=== PATIENT | female | born 1930 | race Caucasian/White ===

== ENCOUNTER 2017-02-18 14:30 | Day surgery (SDC) | payer MEDICARE ==
[~2017-02-18 14:30] MED LIST: ASPIRIN EC81 MG PO; CILOSTAZOL100 M1 PO; MULTI VITAMIN1 EAC2 PO; SUDAFED 24-HOU240 M1 PO; SYNTHROID75 MC1 PO; TIMOPTIC5 ML OP
[2017-02-18 15:28] LABS: BASO % 1.1 % (0-2); BASO ABSOLUTE COUNT 0.1 tho/cmm (0.0-0.2); EOS % 2.3 % (0-7); EOSINOPHIL ABSOLUTE COUNT 0.1 tho/cmm (0.0-0.7); HCT-HEMATOCRIT 37.7 % (34.0-49.0); HGB-HEMOGLOBIN 12.7 gm/dl (12.0-15.5); IMMATURE GRANULOCYTES ABSOLUTE 0.03 tho/cmm (0-0.03); IMMATURE GRANULOCYTES PERCENT 0.6 % (0-0.3); LYMPH % 28.8 % (20-45); LYMPH ABSOLUTE COUNT 1.5 tho/cmm (0.8-4.5); MCH (MEAN CORPUSCULAR HGB) 30.8 pg (28.0-32.0); MCHC MEAN CORPUSCULAR HGB CONC 33.7 % (32.0-36.0); MCV (MEAN CELL VOLUME) 91.5 fl (82.0-96.0); MEAN PLATELET VOLUME 9.4 cmc (9.4-12.4); MONO % 10.2 % (0-12); MONOCYTE ABSOLUTE COUNT 0.5 tho/cmm (0.0-1.2); PLATELET COUNT 379 tho/cmm (150-450); RED BLOOD COUNT 4.12 mil/cmm (4.00-5.20); RED CELL DISTRIBUTION WIDTH 14.6 % (12.4-16.4); WHITE BLOOD COUNT 5.3 tho/cmm (4.0-10.0)
[2017-02-18 15:33] LABS: PROTHROMBIN TIME 11.2 SECONDS (9.0-13.6)
[2017-02-18 15:40] LABS: ANION GAP 15 mmol/L (0-20); BLOOD UREA NITROGEN 17 mg/dl (6-24); CARBON DIOXIDE-VENOUS 26 mmol/L (22-32); CHLORIDE 104 mmol/l (96-110); CREATININE 0.87 mg/dl (0.50-1.10); GLUCOSE 90 mg/dL (70-110); POTASSIUM 4.1 mmol/L (3.7-5.1); SODIUM 141 mmol/L (135-145); eGFR VALUE FOR BLACK 70 mL/Min
== END 2017-02-18 19:30 ==
LOC: SHSB 14:30
PROVIDERS: Surgery Vascular Surgery
PROC: B41DYZZ Fluoroscopy of Aorta and Bilateral Lower Extremity Arteries using Other Contrast (ICD-10-PCS; principal; 2017-02-18)
DX: I74.3 Embolism and thrombosis of arteries of the lower extremities (principal); I73.9 Peripheral vascular disease, unspecified; S81.811D Laceration without foreign body, right lower leg, subsequent encounter; Z79.899 Other long term (current) drug therapy; Z79.82 Long term (current) use of aspirin
CPT/HCPCS: C1760; C1769; J2250; J7030; Q9967

== ENCOUNTER 2017-02-22 05:31 | Inpatient (IN) | payer MEDICARE ==
[2017-02-23 05:37] LABS: ANION GAP 13 mmol/L (0-20); BLOOD UREA NITROGEN 16 mg/dl (6-24); CALCIUM 8.1 mg/dl (8.5-10.5); CARBON DIOXIDE-VENOUS 25 mmol/L (22-32); CHLORIDE 109 mmol/l (96-110); CREATININE 0.78 mg/dl (0.50-1.10); GLUCOSE 106 mg/dL (70-110); POTASSIUM 4.3 mmol/L (3.7-5.1); SODIUM 143 mmol/L (135-145); eGFR VALUE FOR BLACK 80 mL/Min
[2017-02-23 05:50] LABS: BASO % 0.3 % (0-2); EOS % 0.8 % (0-7); EOSINOPHIL ABSOLUTE COUNT 0.1 tho/cmm (0.0-0.7); HCT-HEMATOCRIT 27.7 % (34.0-49.0); HGB-HEMOGLOBIN 9.2 gm/dl (12.0-15.5); IMMATURE GRANULOCYTES ABSOLUTE 0.03 tho/cmm (0-0.03); IMMATURE GRANULOCYTES PERCENT 0.3 % (0-0.3); LYMPH % 13.6 % (20-45); LYMPH ABSOLUTE COUNT 1.2 tho/cmm (0.8-4.5); MCH (MEAN CORPUSCULAR HGB) 30.6 pg (28.0-32.0); MCHC MEAN CORPUSCULAR HGB CONC 33.2 % (32.0-36.0); MEAN PLATELET VOLUME 9.5 cmc (9.4-12.4); MONO % 10.8 % (0-12); NEUTROPHIL ABSOLUTE COUNT 6.6 tho/cmm (1.6-8.0); NEUTROPHIL-AUTOMATED 6.6 tho/cmm (1.6-8.0); NEUTROPHILS % 74.2 % (40-80); PLATELET COUNT 279 tho/cmm (150-450); RED BLOOD COUNT 3.01 mil/cmm (4.00-5.20); RED CELL DISTRIBUTION WIDTH 14.8 % (12.4-16.4); WHITE BLOOD COUNT 8.9 tho/cmm (4.0-10.0)
[2017-02-24 06:04] LABS: HGB-HEMOGLOBIN 8.8 gm/dl (12.0-15.5); PLATELET COUNT 267 tho/cmm (150-450)
[2017-02-26 04:56] LABS: HGB-HEMOGLOBIN 9.2 gm/dl (12.0-15.5); PLATELET COUNT 294 tho/cmm (150-450)
== END 2017-02-26 12:00 | DRG 253 ==
LOC: SHSB 05:31 → ORW 07:27 → PACU 11:58 → 5WE 13:00
PROVIDERS: ADMIT Surgery Vascular Surgery
PROC: 041K09L Bypass Right Femoral Artery to Popliteal Artery with Autologous Venous Tissue, Open Approach (ICD-10-PCS; principal; 2017-02-22)
PROC: 0JBN0ZZ Excision of Right Lower Leg Subcutaneous Tissue and Fascia, Open Approach (ICD-10-PCS; 2017-02-22)
PROC: 04CK0ZZ Extirpation of Matter from Right Femoral Artery, Open Approach (ICD-10-PCS; 2017-02-22)
PROC: 04UK0KZ Supplement Right Femoral Artery with Nonautologous Tissue Substitute, Open Approach (ICD-10-PCS; 2017-02-22)
DX: I73.9 Peripheral vascular disease, unspecified (principal); L97.219 Non-pressure chronic ulcer of right calf with unspecified severity; I77.1 Stricture of artery; M19.90 Unspecified osteoarthritis, unspecified site; J30.9 Allergic rhinitis, unspecified
CPT/HCPCS: J0690; J1644; J1650; J7030; Q9967